=== PATIENT | male | born 1965 | race Caucasian/White ===

== ENCOUNTER 2021-07-22 15:20 | Outpatient (CLI) | payer BC ==
[~2021-07-22 15:20] MED LIST: LEVO500T89 PO; METR-111 PO; NORCO10T PO
== END 2021-07-22 23:59 | disposition home or self-care (01) ==
LOC: CARD DIAG 15:20
PROVIDERS: ATTEND Internal Medicine Cardiovascular Disease
DX: R07.9 Chest pain, unspecified (principal)
CPT/HCPCS: 93306